=== PATIENT | male | born 1970 | race Caucasian/White ===

== ENCOUNTER 2023-02-18 17:00 | Outpatient (RCR) | payer BC, SELFPAY | END 2023-06-03 23:59 | disposition home or self-care (01) | PROVIDERS: PCP Surgery; Visit Provider Family Medicine | DX: M54.50 Low back pain, unspecified (principal); Z51.89 Encounter for other specified aftercare | CPT/HCPCS: 97110; 97165; L3933; X5282 ==

== ENCOUNTER 2024-01-04 07:38 | Outpatient (CLI) | payer BC, SELFPAY | END 2024-01-04 07:39 | disposition home or self-care (01) | PROVIDERS: PCP Surgery; Referring Provider Family Medicine; Visit Provider Family Medicine | DX: M54.16 Radiculopathy, lumbar region (principal); M51.36 Other intervertebral disc degeneration, lumbar region | CPT/HCPCS: 62323; J0702; Q9966 ==

== ENCOUNTER 2025-01-31 12:32 | Outpatient (CLI) | payer BC, SELFPAY | END 2025-01-31 12:33 | disposition home or self-care (01) | LOC: NFLDREF 02-02 09:40 | PROVIDERS: PCP Surgery; Referring Provider Surgery; Visit Provider Nurse Practitioner | DX: R07.9 Chest pain, unspecified (principal); R07.89 Other chest pain | CPT/HCPCS: 84484 ==